=== PATIENT | male | born 1965 | race Caucasian/White ===

== ENCOUNTER 2017-07-31 10:00 | Emergency (ER) | payer MEDICARE ==
[~2017-07-31] VITALS: Ht 175.3 cm; Wt 72.0 kg
[~2017-07-31 10:00] MED LIST: FLEXERIL PO; NAPROSYN500 MG PO; SEROQUEL200 MG PO; XANAX1 MG PO
[2017-07-31 12:46] VITALS: BP 140/88
== END 2017-07-31 12:48 | disposition home or self-care (01) ==
LOC: ED 10:00
DX: M25.511 Pain in right shoulder (principal); F31.9 Bipolar disorder, unspecified; G89.29 Other chronic pain; M54.9 Dorsalgia, unspecified; F17.210 Nicotine dependence, cigarettes, uncomplicated